=== PATIENT | female | born 1985 | race Caucasian/White ===

== ENCOUNTER 2025-05-27 22:03 | Emergency (ER) | payer OTHER, SELFPAY ==
--- NOTE | ~2025-05-27 | XR_ITS ---
Examination: XR chest 2V Clinical History: chest pain Comparison: None Technique: PA and Lateral Findings: Cardiomediastinal silhouette normal size and configuration. Lungs clear. No acute bony abnormality. IMPRESSION: 1. No acute cardiopulmonary findings. Reviewed, dictated and finalized at location R.
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
[2025-05-27 22:19] VITALS: BP 115/70; PULSE 109; RESP 16; TEMP 36.9; O2SAT 99
--- NOTE | 2025-05-28 01:11 | PC.NURSE ---
Pt left before being seen by a provider after calling out stating that she wanted discharge papers and to be sent home. This RN confirmed with the charge burse about papers but was informed since no provider had evaluated her she was free to leave and would be marked as walked out befor being seen verus a formal discharge or against medical advice discharge. Pt ambulated out with steady gait. self removed C collar. still stated pain. This RN did attempt to get radiology orders to start Pt care.
== END 2025-05-28 01:37 | disposition left against medical advice (07) ==
LOC: ANHED 05-28 01:24
PROVIDERS: Emergency Provider Student in an Organized Health Care Education/Training Program
DX: S19.9XXA Unspecified injury of neck, initial encounter (principal); V49.40XA Driver injured in collision with unspecified motor vehicles in traffic accident, initial encounter
CPT/HCPCS: 70450; 70490; 71046; 71250; 99199